=== PATIENT | female | born 1990 ===

== ENCOUNTER → 2018-08-04 | Outpatient (CLI) | payer OTHER | LOC: LAB 17:56 → LAB SHORT 17:56 | DX: L02.425 Furuncle of right lower limb (principal); L02.426 Furuncle of left lower limb; L70.0 Acne vulgaris; D22.5 Melanocytic nevi of trunk; D22.4 Melanocytic nevi of scalp and neck; D22.71 Melanocytic nevi of right lower limb, including hip; D22.39 Melanocytic nevi of other parts of face; D48.5 Neoplasm of uncertain behavior of skin; L90.5 Scar conditions and fibrosis of skin; L81.2 Freckles; L81.8 Other specified disorders of pigmentation; L91.8 Other hypertrophic disorders of the skin | CPT/HCPCS: 87070; 87205 ==

== ENCOUNTER → 2022-07-06 | Outpatient (CLI) | payer OTHER ==
[2022-07-06 20:50] LABS: Microalb/Creat Ratio UR, Rand 401.434 mg/g (0.000-30.000)
== END | disposition home or self-care (01) ==
LOC: LAB SHORT 18:24
PROVIDERS: Family Medicine
DX: R80.9 Proteinuria, unspecified (principal)
CPT/HCPCS: 82043; 82570

== ENCOUNTER 2024-01-08 04:07 | Emergency (ER) | payer OTHER ==
[~2024-01-08] VITALS: Ht 157.5 cm; Wt 88.9 kg
[2024-01-08] MEDS ORDERED: Famotidine 10 MG/ML 2ML Vial IV ONE (04:55)
[2024-01-08] MEDS ORDERED: Ondansetron HCl 2 MG / ML 2ML Vial IV ONE ×2 (04:55)
[2024-01-08] MEDS ORDERED: Morphine Sulfate 4 MG/1 ML Injection IV ONE (04:55)
[2024-01-08 05:14] LABS: BASOPHILS ABSOLUTE AUTO 0.05 K/mm3 (0.00-0.23); BASOPHILS PERCENT AUTO 0 % (0-2); EOSINOPHILS ABSOLUTE AUTO 0.02 K/mm3 (0.00-0.68); EOSINOPHILS PERCENT AUTO 0 % (0-6); Hematocrit 40.7 % (33.0-51.0); Hemoglobin 14.2 g/dL (11.5-16.0); IMMATURE GRAN ABSOLUTE AUTO 0.07 K/mm3 (0.00-0.10); IMMATURE GRAN PERCENT AUTO 0 % (0-1); LYMPHOCYTES ABSOLUTE AUTO 1.42 K/mm3 (0.84-5.20); LYMPHOCYTES PERCENT AUTO 9 % (21-46); MONOCYTES ABSOLUTE AUTO 0.88 K/mm3 (0.16-1.47); MONOCYTES PERCENT AUTO 6 % (4-13); Mean Corpuscular HGB 32.4 pg (26.0-34.0); Mean Corpuscular HGB Conc 34.9 g/dL (31.5-36.5); Mean Corpuscular Volume 93 fL (80-100); NEUTROPHILS ABSOLUTE AUTO 13.37 K/mm3 (1.96-9.15); NEUTROPHILS PERCENT AUTO 85 % (41-73); Platelet Count 370 K/mm3 (150-400); RDW Coefficient Variation 12.5 % (11.7-14.2); RDW Standard Deviation 43.1 fL (35.1-46.3); Red Blood Cell Count 4.38 M/mm3 (3.80-5.20); White Blood Cell Count 15.81 K/mm3 (4.00-11.30)
[2024-01-08 05:34] LABS: Albumin, Blood 3.8 g/dL (3.4-5.0); Bilirubin, Total 1.1 mg/dL (0.1-1.0); Bun/Creatinine Ratio 26.4 (12.0-20.0); Calcium, Blood 9.6 mg/dL (8.5-10.1); Creatinine, Blood 0.61 mg/dL (0.40-1.00); Magnesium, Blood 1.7 mg/dL (1.6-2.4); Potassium, Blood 3.9 mmol/L (3.5-5.5); Total Protein, Blood 7.8 g/dL (6.4-8.2)
[2024-01-08 06:47] LABS: Source, Urine Clean Catch
[2024-01-08 07:08] LABS: Appearance, Urine Hazy (Clear); Bilirubin, Urine Neg (Neg); Blood, Urine 1+ (Neg); Color, Urine Amber (P-Yellow); Glucose Qualitative, Urine Neg (Neg); Ketones, Urine 1+ (Neg); Leukocyte Esterase, Urine Neg (Neg); Nitrite, Urine Neg (Neg); Protein, Urine 4+ (Neg); Urobilinogen, Urine 1+ (Normal)
[2024-01-08 07:17] LABS: Hyaline Casts 0-2 /lpf (0-2)
[2024-01-08 07:18] LABS: Bacteria Mod /hpf; Mucus Heavy (0-Heavy); Red Blood Cells, Urine 0-2 /hpf (0-2); Squamous Epithelial Cells Many /hpf (Few)
[2024-01-08 07:30] VITALS: BP 132/78
[2024-01-08] MEDS ORDERED: IBUP600 PO (07:40)
[2024-01-08] MEDS ORDERED: ONDA4ODT MM (07:40)
== END 2024-01-08 07:52 | disposition home or self-care (01) ==
LOC: ER 04:07
PROVIDERS: Emergency Medicine
DX: K80.70 Calculus of gallbladder and bile duct without cholecystitis without obstruction (principal); E03.9 Hypothyroidism, unspecified; I12.9 Hypertensive chronic kidney disease with stage 1 through stage 4 chronic kidney disease, or unspecified chronic kidney disease; N18.2 Chronic kidney disease, stage 2 (mild); Z88.2 Allergy status to sulfonamides; Z88.8 Allergy status to other drugs, medicaments and biological substances
CPT/HCPCS: 80053; 81001; 81025; 83690; 83735; 85025; 87086; 96374; 96375; 99284-25; J2270; J2405